=== PATIENT | female | born 1985 | race American Indian/Alaskan Native ===

== ENCOUNTER 2017-11-22 21:52 | Emergency (ER) | payer SELFPAY ==
[2017-11-22 22:00] VITALS: BP 126/72
== END 2017-11-22 23:03 | disposition left against medical advice (07) ==
LOC: ED 21:52
DX: M79.675 Pain in left toe(s) (principal); Z53.21 Procedure and treatment not carried out due to patient leaving prior to being seen by health care provider

== ENCOUNTER 2017-11-23 18:12 | Emergency (ER) | payer SELFPAY ==
[2017-11-23 18:55] VITALS: BP 123/77
== END 2017-11-23 21:18 | disposition left against medical advice (07) ==
LOC: ED 18:12
DX: M79.672 Pain in left foot (principal); Z53.21 Procedure and treatment not carried out due to patient leaving prior to being seen by health care provider

== ENCOUNTER 2017-11-27 13:53 | Emergency (ER) | payer SELFPAY ==
[2017-11-27 14:09] VITALS: BP 138/81
--- NOTE | 2017-11-27 16:22 | Emergency Department Report ---
ED General Adult HPI - General Chief complaint: Wound/Laceration Stated complaint: LEFT FOOT TOENAIL INFECTION Time Seen by Provider: 11/27/17 16:08 Source: patient Mode of arrival: Ambulatory Limitations: No Limitations - History of Present Illness Initial comments: Patient is a 32-year-old black female who is presenting with a fungal infection to her toe. Patient recently was at a nail shop and had a pedicure done and believes this is where the infection stems from. Patient is having discoloration to the toenail of the left great toe with some surrounding erythema. Patient states the pain as a 3 out of 10 as a cane. She feels as though her nails, fall off. - Related Data Previous Rx's Medication Instructions Recorded Last Taken Type Ibuprofen [Motrin] 600 mg PO Q8H PRN #20 tablet 11/27/17 Unknown Rx Terbinafine HCl [LamiSIL] 250 mg PO DAILY 60 Days tablet 11/27/17 Unknown Rx traMADol [Ultram] 50 mg PO Q6HR PRN #12 tablet 11/27/17 Unknown Rx Allergies Allergy/AdvReac Type Severity Reaction Status Date / Time No Known Allergies Allergy Verified 11/22/17 21:55 ED Review of Systems ROS: Stated complaint: LEFT FOOT TOENAIL INFECTION Other details as noted in HPI Comment: All other systems reviewed and negative ED Past Medical Hx - Past Medical History Previous Medical History?: No - Surgical History Past Surgical History?: No - Social History Smoking Status: Never Smoker Substance Use Type: None - Medications Home Medications: Home Medications Medication Instructions Recorded Confirmed Last Taken Type Ibuprofen [Motrin] 600 mg PO Q8H PRN #20 tablet 11/27/17 Unknown Rx Terbinafine HCl [LamiSIL] 250 mg PO DAILY 60 Days tablet 11/27/17 Unknown Rx traMADol [Ultram] 50 mg PO Q6HR PRN #12 tablet 11/27/17 Unknown Rx ED Physical Exam - General Limitations: No Limitations General appearance: alert, in no apparent distress - Head Head exam: Present: atraumatic, normocephalic - Eye Eye exam: Present: normal appearance - ENT ENT exam: Present: mucous membranes moist - Neck Neck exam: Present: normal inspection - Respiratory Respiratory exam: Present: normal lung sounds bilaterally. Absent: respiratory distress - Cardiovascular Cardiovascular Exam: Present: regular rate, normal rhythm. Absent: systolic murmur, diastolic murmur, rubs, gallop - GI/Abdominal GI/Abdominal exam: Present: soft, normal bowel sounds - Extremities Exam Extremities exam: Present: normal inspection, other (there is hyperpigmented changes to the left great toenail) - Back Exam Back exam: Present: normal inspection - Neurological Exam Neurological exam: Present: alert, oriented X3 - Psychiatric Psychiatric exam: Present: normal affect, normal mood - Skin Skin exam: Present: warm, dry, intact, normal color. Absent: rash ED Course Vital Signs 11/27/17 14:06 Temperature 98.3 F Pulse Rate 71 Respiratory 16 Rate Blood Pressure 138/81 O2 Sat by Pulse 97 Oximetry Critical care attestation.: If time is entered above; I have spent that time in minutes in the direct care of this critically ill patient, excluding procedure time. ED Disposition Clinical Impression: Onychomycosis Disposition: DC-01 TO HOME OR SELFCARE Is pt being admited?: No Does the pt Need Aspirin: No Condition: Stable Instructions: Paronychia (ED) Prescriptions: Ibuprofen [Motrin] 600 mg PO Q8H PRN #20 tablet PRN Reason: Pain Terbinafine HCl [LamiSIL] 250 mg PO DAILY 60 Days tablet traMADol [Ultram] 50 mg PO Q6HR PRN #12 tablet PRN Reason: Pain Referrals: PRIMARY CARE, [Primary Care Provider] - 3-5 Days
== END 2017-11-27 16:27 | disposition home or self-care (01) ==
LOC: ED 13:53
DX: B35.1 Tinea unguium (principal)
CPT/HCPCS: 99282